=== PATIENT | male | born 1975 | race Caucasian/White ===

== ENCOUNTER 2016-12-28 12:30 | Emergency (ER) | payer BC, OTHER ==
[~2016-12-28] VITALS: Wt 110.5 kg
[~2016-12-28 12:30] MED LIST: ALBU8.5H3 INH; AZIT250T94 PO; PRED20TA PO; RTPRO NEB
--- NOTE | 2016-12-28 14:52 | ERA ---
ER Documentation Chief Complaint Date/Time DATE: 12/28/16 TIME: 14:51 Chief Complaint Chest discomfort HPI The patient is a 41-year-old male, presenting to the ER because he has chest discomfort after having an argument with his . He complains of worsening chest pain with movement. he denies fever, chills, neck pain, chest pain with exertion or vomiting or diaphoresis. He denies abdominal pain, vomiting, dysuria, diarrhea. He smokes socially, drinks socially, denies illicit drug Past medical/surgical history: None ROS All systems reviewed and are negative except as per history of present illness. Medications Home Meds Active Scripts Ibuprofen* (Motrin*) 600 Mg Tab, 600 MG PO Q6H Y for PAIN AND OR ELEVATED TEMP, #30 TAB Prov:ILIR VALDEZ MD 12/28/16 Discontinued Scripts Albuterol Sulfate* (Proventil* Neb) 0.083% Neb, 2.5 MG NEB Q4 Y for SHORTNESS OF BREATH, #30 EA Prov:MAYUR BELL DO 08/14/15 Azithromycin* (Zithromax*) 250 Mg Tablet, 250 MG PO .ZPACK DIRECTED, #6 TAB TAKE 500 MG (2 TABS) THE FIRST DAY THEN 250 MG (1 TAB) DAYS 2-5 Prov:MAYUR BELL DO 08/14/15 Albuterol Sulfate* (Proair HFA*) 8.5 Gm Hfa.aer.ad, 2 PUFF INH Q4, #1 INHALER Prov:MAYUR BELL DO 08/14/15 Prednisone* (Prednisone*) 20 Mg Tab, 60 MG PO DAILY for 5 Days, TAB Prov:MAYUR BELL DO 08/14/15 Allergies Allergies: Coded Allergies: No Known Allergy (Unverified , 12/28/16) PMhx/Soc History of Surgery: No Anesthesia Reaction: No Hx Neurological Disorder: No Hx Respiratory Disorders: No Hx Cardiac Disorders: No Hx Psychiatric Problems: No Hx Miscellaneous Medical Probl: No Hx Alcohol Use: No Hx Substance Use: No Hx Tobacco Use: No Physical Exam Vitals Vital Signs Date Time Temp Pulse Resp B/P Pulse Ox O2 Delivery O2 Flow Rate FiO2 12/28/16 15:20 98.2 91 20 156/105 98 Room Air 6/27/17 12:36 99.3 101 18 154/104 98 Physical Exam Const: No acute distress. Head: Atraumatic. Eyes: Normal Conjunctiva. ENT: Normal External Ears, Nose and Mouth. Neck: Full range of motion. No meningismus. Resp: Clear to auscultation bilaterally. Cardio: Regular rate and rhythm. Mild chest discomfort with palpation, no crepitus Abd: Soft, non distended, normal bowel sounds, non tender. Skin: No petechiae or rashes. Back: No midline or flank tenderness. Ext: No cyanosis, or edema. Neur: Awake and alert. No focal deficit Psych: Normal Mood and Affect. Results 24 hrs Current Medications Medications (Trade) Dose Ordered Sig/Khoi Route PRN Reason Start Time Stop Time Status Last Admin Dose Admin Ketorolac Tromethamine (Toradol) 60 mg ONCE STAT IM 12/28/16 14:53 12/28/16 14:55 DC 12/28/16 15:11 Lorazepam (Ativan) 0.5 mg ONCE ONCE PO 12/28/16 15:00 12/28/16 15:01 DC 12/28/16 15:11 Procedures/[place] [id number] Radiology Main Line: [phone] DIAGNOSTIC IMAGING REPORT Patient: ELFEGO SAMANO : 1975 Age: 41 Sex: M MR #: [id number] DOS: 12/28/16 0000 Ordering MD: ILIR VALDEZ MD Location: E/R Room/Bed: PROCEDURE: Chest x-ray CLINICAL INDICATION: Chest pain TECHNIQUE: Chest single view COMPARISON: None FINDINGS: The heart is normal in size. The pulmonary vessels are normal in caliber. The lungs are clear. The costophrenic angles are sharp. The visualized bony thorax is unremarkable. IMPRESSION: No acute cardiopulmonary disease. RPTAT: HH .Parth Malave MD, Date Time Electronically viewed and signed by .Parth Malave MDMD on 12/28/2016 15:17 .W/ CC: ILIR VALDEZ MD EKG: Read by emergency physician Rate/Rhythm: Normal Sinus Rhythm 95 beats/min QRS, ST, T-waves: No ST elevation, no T inversion, right rosenthal axis Impression: Abnormal EKG MEDICAL MAKING DECISION: The patient is a 41-year-old male, presenting with acute chest wall pain, acute distress. He was treated with Toradol 60 mg IM for pain and Ativan 0.5 mg p.o. for acute distress with good response. The differential diagnoses considered include but are not limited to acute coronary syndrome, acute myocardial infarction, pericarditis, pulmonary embolism , aortic dissection, pneumonia, pleural effusion, pneumothorax, GERD, chest wall pain. Departure Diagnosis: Primary Impression: Chest wall pain Additional Impression: Stress Condition: Good Comments He was discharged with Motrin I discussed the findings with the patient. I advised the patient to follow-up with the primary physician in about 1-2 days, sooner if needed and return if any concern. The patient's blood pressure was elevated (>120/80) but appears stable without evidence of hypertension emergency or urgency. The patient was counseled about the risks of hypertension and urged to pursue outpatient monitoring and therapy within a week with their primary care physician. ILIR VALDEZ MD Dec 28, 2016 14:52
[2016-12-28] MEDS ORDERED: KETOROLAC 60 MG INJ IM STA (14:53)
[2016-12-28] MEDS ORDERED: LORAZEPAM 0.5 MG TAB PO ONE (15:00)
--- NOTE | 2016-12-28 15:18 | RADRPT ---
PROCEDURE: Chest x-ray CLINICAL INDICATION: Chest pain TECHNIQUE: Chest single view COMPARISON: None FINDINGS: The heart is normal in size. The pulmonary vessels are normal in caliber. The lungs are clear. Th e costophrenic angles are sharp. The visualized bony thorax is unremarkable. IMPRESSION: No acute cardiopulmonary disease. RPTAT: HH .Parth Malave MD, Date Time Electronically viewed and signed by .Parth Malave MD, MD on 12/28/2016 15:17 .W/
[2016-12-28 15:20] VITALS: BP 156/105; PULSE 91; RESP 20; TEMP 98.2
[2016-12-28] MEDS ORDERED: IBUP-1542 PO (15:44)
== END 2016-12-28 16:08 | disposition home or self-care (01) ==
LOC: E/R 12:30
DX: R07.89 Other chest pain (principal); F43.9 Reaction to severe stress, unspecified
CPT/HCPCS: 71010; 93005; J1885; Z7610; 96372

== ENCOUNTER 2017-01-31 17:53 | Emergency (ER) | payer SELFPAY ==
[~2017-01-31] VITALS: Ht 172.7 cm; Wt 103.5 kg
[~2017-01-31 17:53] MED LIST changes: -ALBU8.5H3 INH; -AZIT250T94 PO; +IBUP-1542 PO; -PRED20TA PO; -RTPRO NEB
[2017-01-31 17:56] VITALS: Ht 172.7 cm; Wt 103.5 kg
== END 2017-01-31 22:10 | disposition left against medical advice (07) ==
LOC: E/R 17:53
DX: Z53.21 Procedure and treatment not carried out due to patient leaving prior to being seen by health care provider (principal)